=== PATIENT | female | born 2000 | race Caucasian/White ===

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

== ENCOUNTER 2019-06-24 13:46 | Emergency (ER) | payer MEDICAID ==
[~2019-06-24] VITALS: Ht 162.6 cm; Wt 53.0 kg
[~2019-06-24 13:46] MED LIST: CEPH-443 PO; D-ME118S24 PO; HYDR-4011 PO; IBUP-1541 PO; IBUP-1561 PO; ONDA4TAB14 PO
[2019-06-24 14:00] VITALS: Ht 162.6 cm; Wt 53.0 kg
[2019-06-24] MEDS ORDERED: ONDANSETRON 4 MG INJ IV STA ×2 (15:40→16:48)
[2019-06-24] MEDS ORDERED: SOD CHLORIDE 0.9% 1,000 ML IV STA (15:40)
[2019-06-24] MEDS ORDERED: ACETAMINOPHEN 500 MG TAB PO STA (15:40)
[2019-06-24] MEDS ORDERED: morphine 4 MG/ML VIAL IV STA (16:48)
[2019-06-24] MEDS ORDERED: CEFTRIAXONE 1 GM/50 ML (PMX) 50 ML IVPB ONE (17:00)
[2019-06-24 17:48] VITALS: BP 93/54; PULSE 110; RESP 18
== END 2019-06-24 18:05 | disposition home or self-care (01) ==
LOC: FTE 13:46
DX: N12 Tubulo-interstitial nephritis, not specified as acute or chronic (principal)
CPT/HCPCS: 36415; 71045; 74176; 80053; 81001; 81025; 83690; 85025; 87400; 96361; 96365; 96375; 96376; J0696; J2270; J2405; J7030; Z7502; Z7610